=== PATIENT | male | born 1980 | race Caucasian/White ===

== ENCOUNTER 2018-05-09 06:55 | Day surgery (SDC) | payer OTHER ==
[2018-05-06 10:53] VITALS: BMI 28.1
[2018-05-09] MEDS ORDERED: CEFAZOLIN/Water 2 GM/20 ML SYRINGE ONE (07:35)
[2018-05-09] MEDS ORDERED: Bupivacaine HCl 0.5%/Epinephrine 1:200,000/PF 30 ml Vial ONE (09:16)
[2018-05-09] MEDS ORDERED: Fentanyl 100 MCG/2 ML VIAL ONE (09:31)
[2018-05-09] MEDS ORDERED: Midazolam HCl 2 mg/2 ml Vial ONE (09:32)
[2018-05-09] MEDS ORDERED: HYDROcodone/Acetaminophen 5/325 mg Tablet ONE (11:46)
--- NOTE | 2018-05-09 12:02 | OP ---
DATE OF PROCEDURE: 05/09/2018 SURGEON: Jair Sellers M.D. ANESTHESIA: General. PREOPERATIVE DIAGNOSIS: Medial meniscal tear, left knee. POSTOPERATIVE DIAGNOSIS: Medial meniscal tear, left knee. PROCEDURE: Arthroscopy of left knee with partial medial meniscectomy. OPERATIVE FINDINGS: Examination under anesthesia revealed the knee to be stable. At arthroscopy, th e patellofemoral joint, ACL, lateral compartment, lateral meniscus were normal. There was a complex tear of the posterior horn of the medial with a large flap component and with very slight arthritic c hanges in the weightbearing surface of the medial femoral condyle. The knee was quite tight making a ccess to the posterior horn of the medial meniscus somewhat difficult, but satisfactory meniscectomy was accomplished. NARRATIVE REPORT: After satisfactory anesthesia was induced in supine position, the patient was plac ed in a leg garvey and prepped and draped in routine manner. Left leg was elevated and exsanguinated with an Esmarch bandage, and the tourniquet inflated to 300 mmHg. [place] arthroscope was introduce d into the anterolateral portal, probe through an anteromedial portal, and inflow and outflow accompl ished through the scope using the NAVX arthroscopy pump. Arthroscopy was carried out and the abov e findings were noted. All findings were documented with the video printer and hard copies were made . Posterior horn of the medial meniscus was debrided using basket forceps and motorized shaver inter mittently interchanging camera and instruments between the anteromedial and anterolateral portals for best visualization. The remaining rim of the meniscus was saucerized then probed and found to be st able. There was still an intact rim of approximately 3-4 mm. The knee was then copiously irrigated through the scope and all instruments were then withdrawn. 20 mL of 0.5% Marcaine with epinephrine w as instilled into the knee joint and an additional 10 mL injected about the portal sites. The portal sites were closed with 3-0 nylon. A sterile bulky compressive dressing was applied and the tourniqu et deflated after 31 minutes. The foot promptly pinked up. The patient was awakened, taken to [facility] room in stable condition. There were no apparent intraoperative complications. The estimated bl ood loss was negligible. The patient will be discharged home in satisfactory condition. He was instructed on ice, elevation, use of crutches, and home exercise program by the Physical Therapy Department. He was given written wound care instructions and a prescription for [place] 7.5 for pain, 40 tablets. He will be rechecked in my office in 10-14 days or sooner if there any problems prior to that time.
[2018-05-09] MEDS ORDERED: Lidocaine 1% PF 5 ML VIAL ONE (15:01)
[2018-05-09] MEDS ORDERED: PROPOFOL 200 MG/20 ML VIAL ONE (15:01)
[2018-05-09] MEDS ORDERED: Ondansetron HCl/PF 4 MG/2 ML Vial ONE (15:01)
[2018-05-09] MEDS ORDERED: Ketorolac Tromethamine 30 MG/ML VIAL ONE (15:01)
== END 2018-05-09 12:50 | disposition home or self-care (01) ==
LOC: SDC 06:55
PROVIDERS: ATTEND Orthopaedic Surgery
PROC: 0SBD4ZZ Excision of Left Knee Joint, Percutaneous Endoscopic Approach (ICD-10-PCS; principal; 2018-05-09)
DX: S83.232A Complex tear of medial meniscus, current injury, left knee, initial encounter (principal); F41.9 Anxiety disorder, unspecified; Z79.899 Other long term (current) drug therapy
CPT/HCPCS: G8978-GP-CI; G8979-GP-CI; G8980-GP-CI; J0670; J1885; J2001; J2250; J2405; J2704; J3010